=== PATIENT | female | born 1970 | race Two or more races ===

== ENCOUNTER 2024-10-25 22:21 | Emergency (ER) | payer MEDICAID, SELFPAY ==
[2024-10-25 22:22] VITALS: BMI 27.3
[2024-10-25 22:28] VITALS: BP 150/73; PULSE 80; RESP 18; TEMP 36.6; O2SAT 99
[2024-10-25 22:40] LABS: Collection Type, Urine Clean Catch; Squamous Epithelial Cell,Urine 0 /hpf (0-5)
[2024-10-25 22:47] LABS: Bilirubin,Urine Negative (Negative); Blood,Urine 3+ (Negative); Clarity,Urine Clear (Clear/Hazy); Color,Urine Colorless (Lt Yel-Yel); Culture Indicated,Urine Not Indicated; Glucose, Urine Negative (Negative); Ketones,Urine Negative (Negative); Leukocyte Esterase,Urine Positive (Negative); Nitrite,Urine Negative (Negative); Protein,Urine Negative (Neg - Trace); RBC,Urine 3 /hpf (0-3); Specific Gravity,Urine 1.004 (1.001-1.035); Urobilinogen,Urine Negative mg/dL (0.0-1.0); WBC,Urine 7 /hpf (0-5)
[2024-10-25 22:50] LABS: Amphetamine/Methamp Scrn,U Negative (Negative); Barbiturate Screen,Urine Negative (Negative); Benzodiazepines Screen,Urine Negative (Negative); Benzoylecgonine Screen, Ur Negative (Negative); Fentanyl Screen,Urine Negative (Negative); Opiate Screen,Urine Negative (Negative); THC Screen,Urine Negative (Negative)
--- NOTE | 2024-10-25 23:16 | EDRME_ITS ---
Rapid Medical Screening Exam [facility] Arrival date/time: 10/25/24 22:21 54F with history of chronic dysuria presents to ED with dysuria/hematuria. Patient has been seeing a urologist and has had unremarkable US and CT. Patient is here today because she wanted to see what else can be done. Chief Complaint: Urogenital-Female Vital signs: Vital Signs Temperature 98 F 10/25/24 22:28 Pulse Rate 80 10/25/24 22:28 Respiratory Rate 18 10/25/24 22:28 Blood Pressure 150/73 H 10/25/24 22:28 Pulse Oximetry (%) 99 10/25/24 22:28 Oxygen Delivery Method Room Air 10/25/24 22:28
== END 2024-10-25 23:41 | disposition left against medical advice (07) ==
LOC: SERX 23:17
PROVIDERS: Physician Assistant; Emergency Provider Emergency Medicine
DX: R30.0 Dysuria (principal); Z53.29 Procedure and treatment not carried out because of patient's decision for other reasons
CPT/HCPCS: 80307; 81001; 99281